=== PATIENT | female | born 1980 | race American Indian/Alaskan Native ===

== ENCOUNTER 2019-03-13 09:30 | Outpatient (CLI) | payer BC ==
[2019-03-13 11:11] LABS: Hematocrit 41.8 % (30.3-42.9); Mean Corpuscular HGB Conc 34 % (30-34); Mean Corpuscular Volume 92 fl (79-97); Red Blood Count 4.53 M/mm3 (3.65-5.03); Red Cell Distribution Width 13.9 % (13.2-15.2)
[2019-03-13 11:28] LABS: Alanine Aminotransferase 20 units/L (7-56); BUN/Creatinine Ratio 11; Blood Urea Nitrogen 10 mg/dL (7-17); Calcium 9.3 mg/dL (8.4-10.2); Chol/HDL Ratio 3.62 %; HDL Cholesterol 53 mg/dL (40-59); Hemolysis Index 10; LDL Cholesterol,Direct 132 mg/dL (50-130)
[2019-03-13 11:52] LABS: Platelet Count 185 K/mm3 (140-440)
[2019-03-16 12:56] LABS: Vitamin D, 25-OH, D2 <4 ng/mL
== END 2019-03-13 09:31 | disposition home or self-care (01) ==
LOC: LAB 09:30
PROVIDERS: ATTEND Internal Medicine
DX: Z00.01 Encounter for general adult medical examination with abnormal findings (principal); Z13.220 Encounter for screening for lipoid disorders; Z13.21 Encounter for screening for nutritional disorder; I10 Essential (primary) hypertension
CPT/HCPCS: 36415; 80053; 80061; 82306; 82607; 83036; 84443; 85027

== ENCOUNTER 2019-05-05 02:51 | Emergency (ER) | payer BC ==
--- NOTE | 2019-05-05 04:01 | Emergency Department Report ---
ED ENT HPI - General Chief complaint: Dental/Oral Stated complaint: TOOTHACHE Time Seen by Provider: 05/05/19 03:51 Source: patient Mode of arrival: Ambulatory Limitations: No Limitations - History of Present Illness Initial comments: Patient is a 38-year-old female who presents to the emergency room with complaints of left lower dental pain that began a month ago. She states she cracked her tooth a month ago on the left lower side. States that she saw a dentist twice and was told that it was infected. States she completed a course of amoxicillin. the patient states she is currently on clindamycin. pt states the dentist referred her to go see an oral surgeon due to the cracked tooth being a wisdom tooth. She denies any facial swelling, fever, nausea, vomiting. Past medical history of high blood pressure and takes her blood pressure medication in the morning. Last took her blood pressure medication yesterday morning. Denies any allergies to medications. LNMP: 04/14/19 - Related Data Previous Rx's Medication Instructions Recorded Last Taken Type HYDROcodone/APAP 5-325 [[place] 1 each PO Q6HR PRN #10 tablet 07/15/14 Unknown Rx 5/325] Promethazine [Phenergan] 25 mg PO Q6H PRN #10 tablet 07/15/14 Unknown Rx Acetaminophen/Codeine [Tylenol 1 tab PO Q6H PRN #10 tab 05/05/19 Unknown Rx /Codeine # 3 tab] Ibuprofen [Motrin 800 MG tab] 800 mg PO TID PRN #20 tablet 05/05/19 Unknown Rx Allergies Allergy/AdvReac Type Severity Reaction Status Date / Time No Known Allergies Allergy Unverified 07/15/14 12:14 ED Dental HPI - General Chief complaint: Dental/Oral Stated complaint: TOOTHACHE Time Seen by Provider: 05/05/19 03:51 Source: patient Mode of arrival: Ambulatory Limitations: No Limitations - Related Data Previous Rx's Medication Instructions Recorded Last Taken Type HYDROcodone/APAP 5-325 [[place] 1 each PO Q6HR PRN #10 tablet 07/15/14 Unknown Rx 5/325] Promethazine [Phenergan] 25 mg PO Q6H PRN #10 tablet 07/15/14 Unknown Rx Acetaminophen/Codeine [Tylenol 1 tab PO Q6H PRN #10 tab 05/05/19 Unknown Rx /Codeine # 3 tab] Ibuprofen [Motrin 800 MG tab] 800 mg PO TID PRN #20 tablet 05/05/19 Unknown Rx Allergies Allergy/AdvReac Type Severity Reaction Status Date / Time No Known Allergies Allergy Unverified 07/15/14 12:14 ED Review of Systems ROS: Stated complaint: TOOTHACHE Other details as noted in HPI Comment: All other systems reviewed and negative ED Past Medical Hx - Past Medical History Previous Medical History?: Yes Hx Hypertension: Yes - Surgical History Past Surgical History?: Yes Additional Surgical History: tubal ligation - Social History Smoking Status: Current Every Day Smoker Substance Use Type: None - Medications Home Medications: Home Medications Medication Instructions Recorded Confirmed Last Taken Type HYDROcodone/APAP 5-325 [[place] 1 each PO Q6HR PRN #10 tablet 07/15/14 Unknown Rx 5/325] Promethazine [Phenergan] 25 mg PO Q6H PRN #10 tablet 07/15/14 Unknown Rx Acetaminophen/Codeine [Tylenol 1 tab PO Q6H PRN #10 tab 05/05/19 Unknown Rx /Codeine # 3 tab] Ibuprofen [Motrin 800 MG tab] 800 mg PO TID PRN #20 tablet 05/05/19 Unknown Rx ED Physical Exam - General Limitations: No Limitations General appearance: alert, in no apparent distress - Head Head exam: Present: atraumatic, normocephalic - Eye Eye exam: Present: normal appearance, PERRL - ENT ENT exam: Present: normal orophraynx, mucous membranes moist, other (left lower wisdom tooth is partially cracked, no surrounding induration or edema, no facial edema, uvula is midline, no uvular edema) ED Course Vital Signs 05/05/19 05/05/19 02:54 04:37 Temperature 98.1 F 98.1 F Pulse Rate 91 H 78 Respiratory 18 16 Rate Blood Pressure 172/117 Blood Pressure 152/106 [Right] O2 Sat by Pulse 100 100 Oximetry ED Medical Decision Making - Lab Data Vital Signs 05/05/19 05/05/19 02:54 04:37 Temperature 98.1 F 98.1 F Pulse Rate 91 H 78 Respiratory 18 16 Rate Blood Pressure 172/117 Blood Pressure 152/106 [Right] O2 Sat by Pulse 100 100 Oximetry - Medical Decision Making Patient is a 38-year-old female who presents to the emergency room with complaints of left lower dental pain that began a month ago. She states she cracked her tooth a month ago on the left lower side. States that she saw a dentist twice and was told that it was infected. States she completed a course of amoxicillin. the patient states she is currently on clindamycin. pt states the dentist referred her to go see an oral surgeon due to the cracked tooth being a wisdom tooth. She denies any facial swelling, fever, nausea, vomiting. Past medical history of high blood pressure and takes her blood pressure medication in the morning. Last took her blood pressure medication yesterday morning. Denies any allergies to medications. LNMP: 04/14/19. on exam: left lower wisdom tooth is partially cracked, no surrounding induration or edema, no facial edema, uvula is midline, no uvular edema. no dental abscess present on exam. pt given prescription for pain medication and anti-inflammatory. advised to please take medication as prescribed as needed. do not drive or operate heavy machinery while taking pain medication. please follow-up with your oral surgeon. It is very important that you follow up with the oral surgeon. Return to the emergency room for any new or worsening symptoms. please follow up with a primary care doctor in the next 2-3 days and discuss the elevation in your blood pressure during todays visit. keep a blood pressure log and eat a low sodium diet. Critical care attestation.: If time is entered above; I have spent that time in minutes in the direct care of this critically ill patient, excluding procedure time. ED Disposition Clinical Impression: Cracked tooth, Dental caries, Elevated blood pressure reading Disposition: TO HOME OR SELFCARE Is pt being admited?: No Does the pt Need Aspirin: No Condition: Stable Instructions: Dental Caries (ED) Additional Instructions: Please take medication as prescribed as needed. do not drive or operate heavy machinery while taking pain medication. please follow-up with your oral surgeon. It is very important that you follow up with the oral surgeon. Return to the emergency room for any new or worsening symptoms. please follow up with a primary care doctor in the next 2-3 days and discuss the elevation in your blood pressure during todays visit. keep a blood pressure log and eat a low sodium diet. Prescriptions: Ibuprofen [Motrin 800 MG tab] 800 mg PO TID PRN #20 tablet PRN Reason: Pain, Moderate (4-6) Acetaminophen/Codeine [Tylenol /Codeine # 3 tab] 1 tab PO Q6H PRN #10 tab PRN Reason: Pain , Severe (7-10) Referrals: your, oral surgeon [Other] - 2-3 Days LETY SANDHU MD [Primary Care Provider] - 2-3 Days Forms: Work/School Release Form(ED) Time of Disposition: 04:01 Print Language: CYMRAES
[2019-05-05 04:41] VITALS: BP 152/106
== END 2019-05-05 04:37 | disposition home or self-care (01) ==
LOC: ED 02:51
DX: K03.81 Cracked tooth (principal); K02.9 Dental caries, unspecified; I10 Essential (primary) hypertension; F17.200 Nicotine dependence, unspecified, uncomplicated; Z98.890 Other specified postprocedural states; Z98.51 Tubal ligation status; Z79.899 Other long term (current) drug therapy
CPT/HCPCS: 99282

== ENCOUNTER 2019-11-17 15:10 | Emergency (ER) | payer BC ==
--- NOTE | 2019-11-17 17:43 | XRay Report ---
CHEST 1 VIEW INDICATION: MAIN: SOB; CP; Chest pain. States has not taken her "water pills" in a few days, ran out. . COMPARISON: None. FINDINGS: Support devices: None. Heart: Normal. Lungs/Pleura: No acute pulmonary or pleural findings. There are mild atelectatic changes in the bases . IMPRESSION: 1. No acute findings. Signer Name: Jatin Mccurdy MD Signed: 11/17/2019 5:39 PM Workstation Name: [id number]
[2019-11-17 18:10] VITALS: BP 117/79
[2019-11-17 18:43] LABS: Basophils # (Auto) 0.1 K/mm3 (0.0-0.1); Basophils % (Auto) 0.7 % (0.0-1.8); Eosinophils # (Auto) 0.1 K/mm3 (0.0-0.4); Eosinophils % (Auto) 1.2 % (0.0-4.3); Hematocrit 36.5 % (30.3-42.9); Hemoglobin 12.1 gm/dl (10.1-14.3); Lymphocytes # (Auto) 2.1 K/mm3 (1.2-5.4); Lymphocytes % (Auto) 26.8 % (13.4-35.0); Mean Corpuscular HGB Conc 33 % (30-34); Mean Corpuscular Volume 91 fl (79-97); Monocytes # (Auto) 0.5 K/mm3 (0.0-0.8); Monocytes % (Auto) 6.4 % (0.0-7.3); Platelet Count 265 K/mm3 (140-440); Red Blood Count 4.03 M/mm3 (3.65-5.03); Red Cell Distribution Width 13.7 % (13.2-15.2)
[2019-11-17 18:53] LABS: INR 1.12 (0.87-1.13)
[2019-11-17 19:24] LABS: Albumin 3.4 g/dL (3.9-5); BUN/Creatinine Ratio 8; Blood Urea Nitrogen 7 mg/dL (7-17); Calcium 9.3 mg/dL (8.4-10.2); Hemolysis Index 582
[2019-11-17 19:33] LABS: Alanine Aminotransferase 36 units/L (7-56)
[2019-11-17] MEDS ORDERED: hydroCHLOROthiazide 25 MG TAB PO ONE (21:49)
--- NOTE | 2019-11-17 21:53 | Emergency Department Report ---
ED General Adult HPI - General Chief complaint: Chest Pain Stated complaint: CHEST PAIN Time Seen by Provider: 11/17/19 16:53 Source: patient, EMS Mode of arrival: Stretcher Limitations: No Limitations - History of Present Illness Initial comments: Patient presents to the emergency department with a chief complaint of increased swelling of her lower extremities and mild shortness of breath. Patient states she takes a water pill daily has been out for the last week. Patient states she will then see her doctor until the end of the week. Patient states that she takes hydrochlorothiazide 12.5 mg for her swelling. Patient denies any chest pain, abdominal pain, or headache. -: Gradual Severity scale (0 -10): 0 Consistency: constant Improves with: none Worsens with: none Associated Symptoms: denies other symptoms Treatments Prior to Arrival: none - Related Data Previous Rx's Medication Instructions Recorded Last Taken Type HYDROcodone/APAP 5-325 [[place] 1 each PO Q6HR PRN #10 tablet 07/15/14 Unknown Rx 5/325] Promethazine [Phenergan] 25 mg PO Q6H PRN #10 tablet 07/15/14 Unknown Rx Acetaminophen/Codeine [Tylenol 1 tab PO Q6H PRN #10 tab 05/05/19 Unknown Rx /Codeine # 3 tab] Ibuprofen [Motrin 800 MG tab] 800 mg PO TID PRN #20 tablet 05/05/19 Unknown Rx Naproxen 500 mg PO Q12H PRN #24 tablet 10/17/19 Unknown Rx Prednisone [predniSONE 10 mg 10 mg PO .TAPER #21 tab.ds.pk 10/17/19 Unknown Rx (6-Day Pack, 21 Tabs)] cephALEXin [Keflex] 500 mg PO Q8HR #30 cap 10/17/19 Unknown Rx methOCARBAMOL [Robaxin TAB] 750 mg PO Q8H PRN #24 tablet 10/17/19 Unknown Rx traMADoL [Ultram] 50 mg PO Q6HR PRN #12 tablet 10/17/19 Unknown Rx hydroCHLOROthiazide [Hctz] 12.5 mg PO QDAY #30 capsule 11/17/19 Unknown Rx Allergies Allergy/AdvReac Type Severity Reaction Status Date / Time No Known Allergies Allergy Unverified 07/15/14 12:14 ED Review of Systems ROS: Stated complaint: CHEST PAIN Other details as noted in HPI Constitutional: denies: chills, fever Eyes: denies: eye pain, eye discharge, vision change ENT: denies: ear pain, throat pain Respiratory: denies: cough, shortness of breath, wheezing Cardiovascular: denies: chest pain, palpitations Endocrine: no symptoms reported Gastrointestinal: denies: abdominal pain, nausea, diarrhea Genitourinary: denies: urgency, dysuria, discharge Musculoskeletal: denies: back pain, joint swelling, arthralgia Skin: denies: rash, lesions Neurological: denies: headache, weakness, paresthesias Psychiatric: denies: anxiety, depression Hematological/Lymphatic: denies: easy bleeding, easy bruising ED Past Medical Hx - Past Medical History Hx Hypertension: Yes - Surgical History Additional Surgical History: tubal ligation - Social History Smoking Status: Former Smoker Substance Use Type: Alcohol - Medications Home Medications: Home Medications Medication Instructions Recorded Confirmed Last Taken Type HYDROcodone/APAP 5-325 [[place] 1 each PO Q6HR PRN #10 tablet 07/15/14 Unknown Rx 5/325] Promethazine [Phenergan] 25 mg PO Q6H PRN #10 tablet 07/15/14 Unknown Rx Acetaminophen/Codeine [Tylenol 1 tab PO Q6H PRN #10 tab 05/05/19 Unknown Rx /Codeine # 3 tab] Ibuprofen [Motrin 800 MG tab] 800 mg PO TID PRN #20 tablet 05/05/19 Unknown Rx Naproxen 500 mg PO Q12H PRN #24 tablet 10/17/19 Unknown Rx Prednisone [predniSONE 10 mg 10 mg PO .TAPER #21 tab.ds.pk 10/17/19 Unknown Rx (6-Day Pack, 21 Tabs)] cephALEXin [Keflex] 500 mg PO Q8HR #30 cap 10/17/19 Unknown Rx methOCARBAMOL [Robaxin TAB] 750 mg PO Q8H PRN #24 tablet 10/17/19 Unknown Rx traMADoL [Ultram] 50 mg PO Q6HR PRN #12 tablet 10/17/19 Unknown Rx hydroCHLOROthiazide [Hctz] 12.5 mg PO QDAY #30 capsule 11/17/19 Unknown Rx ED Physical Exam - General Limitations: No Limitations General appearance: alert, in no apparent distress - Head Head exam: Present: atraumatic, normocephalic - Eye Eye exam: Present: normal appearance, PERRL, EOMI - ENT ENT exam: Present: mucous membranes moist - Neck Neck exam: Present: normal inspection - Respiratory Respiratory exam: Present: normal lung sounds bilaterally. Absent: respiratory distress - Cardiovascular Cardiovascular Exam: Present: regular rate, normal rhythm. Absent: systolic murmur, diastolic murmur, rubs, gallop - GI/Abdominal GI/Abdominal exam: Present: soft, normal bowel sounds. Absent: distended, tenderness - Extremities Exam Extremities exam: Present: other (mild pitting edema) - Back Exam Back exam: Present: normal inspection - Neurological Exam Neurological exam: Present: alert, oriented X3, CN II-XII intact. Absent: motor sensory deficit - Psychiatric Psychiatric exam: Present: normal affect, normal mood - Skin Skin exam: Present: warm, dry, intact, normal color. Absent: rash ED Course Vital Signs 11/17/19 11/17/19 16:16 18:09 Temperature 98.0 F Pulse Rate 57 L 55 L Respiratory 21 Rate Blood Pressure 132/72 Blood Pressure 117/79 [Left] O2 Sat by Pulse 100 Oximetry ED Medical Decision Making - Lab Data Result diagrams: 11/17/19 18:35 11/17/19 20:00 Lab Results 11/17/19 11/17/19 11/17/19 Range/Units 18:35 18:35 18:35 WBC 7.9 (4.5-11.0) K/mm3 RBC 4.03 (3.65-5.03) M/mm3 Hgb 12.1 (10.1-14.3) gm/dl Hct 36.5 (30.3-42.9) % MCV 91 (79-97) fl MCH 30 (28-32) pg MCHC 33 (30-34) % RDW 13.7 (13.2-15.2) % Plt Count 265 (140-440) K/mm3 Lymph % (Auto) 26.8 (13.4-35.0) % [place] % (Auto) 6.4 (0.0-7.3) % Eos % (Auto) 1.2 (0.0-4.3) % Baso % (Auto) 0.7 (0.0-1.8) % Lymph # 2.1 (1.2-5.4) K/mm3 [place] # 0.5 (0.0-0.8) K/mm3 Eos # 0.1 (0.0-0.4) K/mm3 Baso # 0.1 (0.0-0.1) K/mm3 Seg Neutrophils % 64.9 (40.0-70.0) % Seg Neutrophils # 5.1 (1.8-7.7) K/mm3 PT 14.6 (12.2-14.9) Sec. INR 1.12 (0.87-1.13) APTT 29.0 (24.2-36.6) Sec. Sodium (137-145) mmol/L Potassium Chloride (98-107) mmol/L Carbon Dioxide (22-30) mmol/L Anion Gap mmol/L BUN (7-17) mg/dL Creatinine (0.7-1.2) mg/dL Estimated GFR ml/min BUN/Creatinine Ratio % Glucose (65-100) mg/dL Calcium (8.4-10.2) mg/dL Total Bilirubin (0.1-1.2) mg/dL AST (5-40) units/L ALT (7-56) units/L Alkaline Phosphatase (35-129) units/L Troponin T < 0.010 (0.00-0.029) ng/mL NT-Pro-B Natriuret Pep (0-450) pg/mL Total Protein (6.3-8.2) g/dL Albumin (3.9-5) g/dL Albumin/Globulin Ratio % 11/17/19 11/17/19 11/17/19 Range/Units 18:35 20:00 20:00 WBC (4.5-11.0) K/mm3 RBC (3.65-5.03) M/mm3 Hgb (10.1-14.3) gm/dl Hct (30.3-42.9) % MCV (79-97) fl MCH (28-32) pg MCHC (30-34) % RDW (13.2-15.2) % Plt Count (140-440) K/mm3 Lymph % (Auto) (13.4-35.0) % [place] % (Auto) (0.0-7.3) % Eos % (Auto) (0.0-4.3) % Baso % (Auto) (0.0-1.8) % Lymph # (1.2-5.4) K/mm3 [place] # (0.0-0.8) K/mm3 Eos # (0.0-0.4) K/mm3 Baso # (0.0-0.1) K/mm3 Seg Neutrophils % (40.0-70.0) % Seg Neutrophils # (1.8-7.7) K/mm3 PT (12.2-14.9) Sec. INR (0.87-1.13) APTT (24.2-36.6) Sec. Sodium 138 (137-145) mmol/L Potassium TNR 4.1 Chloride 104.7 (98-107) mmol/L Carbon Dioxide 18 L (22-30) mmol/L Anion Gap 22 mmol/L BUN 7 (7-17) mg/dL Creatinine 0.9 (0.7-1.2) mg/dL Estimated GFR > 60 ml/min BUN/Creatinine Ratio 8 % Glucose 88 (65-100) mg/dL Calcium 9.3 (8.4-10.2) mg/dL Total Bilirubin 0.20 (0.1-1.2) mg/dL AST 10 (5-40) units/L ALT 36 (7-56) units/L Alkaline Phosphatase 72 (35-129) units/L Troponin T < 0.010 (0.00-0.029) ng/mL NT-Pro-B Natriuret Pep 255.1 (0-450) pg/mL Total Protein 7.5 (6.3-8.2) g/dL Albumin 3.4 L (3.9-5) g/dL Albumin/Globulin Ratio 0.8 % - EKG Data -: EKG Interpreted by De EKG shows normal: sinus rhythm Rate: bradycardia - Radiology Data Radiology results: report reviewed - Medical Decision Making Discussed results with patient Critical care attestation.: If time is entered above; I have spent that time in minutes in the direct care of this critically ill patient, excluding procedure time. ED Disposition Clinical Impression: Peripheral edema Disposition: DC-01 TO HOME OR SELFCARE Is pt being admited?: No Does the pt Need Aspirin: No Condition: Stable Instructions: Leg Edema (ED) Additional Instructions: return if worse Referrals: PRIMARY CARE,MD [Primary Care Provider] - 3-5 Days [facility] [Provider Group] - 3-5 Days [facility] [Provider Group] - 3-5 Days Time of Disposition: 21:52
== END 2019-11-17 22:32 | disposition home or self-care (01) ==
LOC: ED 15:10
DX: R60.0 Localized edema (principal); I10 Essential (primary) hypertension; Z98.51 Tubal ligation status; Z87.891 Personal history of nicotine dependence; Z79.899 Other long term (current) drug therapy
CPT/HCPCS: 36415; 71045; 80053; 83880; 84132; 84484; 85025; 85610; 85730; 93005; 93010

== ENCOUNTER 2022-03-24 10:28 | Emergency (ER) | payer BC ==
[2022-03-24] MEDS ORDERED: ASPIRIN 81 MG TAB CHEW PO ONE (14:14)
[2022-03-24] MEDS ORDERED: NITROGLYCERIN 0.4 MG TAB SUBL SL ONE (14:14)
--- NOTE | 2022-03-24 14:37 | Emergency Department Report ---
ED General Adult HPI - General Chief complaint: Chest Pain Stated complaint: CHEST PAIN Time Seen by Provider: 03/24/22 14:13 Source: patient, EMS Mode of arrival: Stretcher Limitations: No Limitations - History of Present Illness Initial comments: Patient presents to the emergency department the chief complaint of chest pain. Patient states the chest pain started 8 AM this morning. Pain is located in the middle of her chest. Pain is characterized as tightness in nature. Patient does endorse some mild shortness of breath but denies abdominal pain or headache. There is no radiation of chest pain. -: Sudden Location: chest Radiation: non-radiation Severity scale (0 -10): 7 Quality: other (Tightness) Consistency: constant Improves with: none Worsens with: none Associated Symptoms: denies other symptoms Treatments Prior to Arrival: none - Related Data Previous Rx's Medication Instructions Recorded Last Taken Type HYDROcodone/APAP 5-325 [[place] 1 each PO Q6HR PRN #10 tablet 07/15/14 Unknown Rx 5/325] Promethazine [Phenergan] 25 mg PO Q6H PRN #10 tablet 07/15/14 Unknown Rx Acetaminophen/Codeine [Tylenol 1 tab PO Q6H PRN #10 tab 05/05/19 Unknown Rx /Codeine # 3 tab] Ibuprofen [Motrin 800 MG tab] 800 mg PO TID PRN #20 tablet 05/05/19 Unknown Rx Naproxen 500 mg PO Q12H PRN #24 tablet 10/17/19 Unknown Rx Prednisone [predniSONE 10 mg 10 mg PO .TAPER #21 tab.ds.pk 10/17/19 Unknown Rx (6-Day Pack, 21 Tabs)] cephALEXin [Keflex] 500 mg PO Q8HR #30 cap 10/17/19 Unknown Rx methOCARBAMOL [Robaxin TAB] 750 mg PO Q8H PRN #24 tablet 10/17/19 Unknown Rx traMADoL [Ultram] 50 mg PO Q6HR PRN #12 tablet 10/17/19 Unknown Rx hydroCHLOROthiazide [Hctz] 12.5 mg PO QDAY #30 capsule 11/17/19 Unknown Rx Butalb/Acetaminophen/Caffeine 1 cap PO Q8HR PRN #20 cap 04/07/20 Unknown Rx [Fioricet 50-300-40 mg CAP] Ibuprofen [Motrin] 800 mg PO Q8HR PRN #30 tablet 03/24/22 Unknown Rx Allergies Allergy/AdvReac Type Severity Reaction Status Date / Time No Known Allergies Allergy Verified 04/06/20 20:52 ED Review of Systems ROS: Stated complaint: CHEST PAIN Other details as noted in HPI Comment: All other systems reviewed and negative Constitutional: denies: chills, fever Eyes: denies: eye pain, eye discharge, vision change ENT: denies: ear pain, throat pain Respiratory: denies: cough, shortness of breath, wheezing Cardiovascular: chest pain. denies: palpitations Endocrine: no symptoms reported Gastrointestinal: denies: abdominal pain, nausea, diarrhea Genitourinary: denies: urgency, dysuria, discharge Musculoskeletal: denies: back pain, joint swelling, arthralgia Skin: denies: rash, lesions Neurological: denies: headache, weakness, paresthesias Psychiatric: denies: anxiety, depression Hematological/Lymphatic: denies: easy bleeding, easy bruising ED Past Medical Hx - Past Medical History Hx Hypertension: Yes - Surgical History Additional Surgical History: tubal ligation - Social History Smoking Status: Never Smoker Substance Use Type: None - Medications Home Medications: Home Medications Medication Instructions Recorded Confirmed Last Taken Type HYDROcodone/APAP 5-325 [[place] 1 each PO Q6HR PRN #10 tablet 07/15/14 Unknown Rx 5/325] Promethazine [Phenergan] 25 mg PO Q6H PRN #10 tablet 07/15/14 Unknown Rx Acetaminophen/Codeine [Tylenol 1 tab PO Q6H PRN #10 tab 05/05/19 Unknown Rx /Codeine # 3 tab] Ibuprofen [Motrin 800 MG tab] 800 mg PO TID PRN #20 tablet 05/05/19 Unknown Rx Naproxen 500 mg PO Q12H PRN #24 tablet 10/17/19 Unknown Rx Prednisone [predniSONE 10 mg 10 mg PO .TAPER #21 tab.ds.pk 10/17/19 Unknown Rx (6-Day Pack, 21 Tabs)] cephALEXin [Keflex] 500 mg PO Q8HR #30 cap 10/17/19 Unknown Rx methOCARBAMOL [Robaxin TAB] 750 mg PO Q8H PRN #24 tablet 10/17/19 Unknown Rx traMADoL [Ultram] 50 mg PO Q6HR PRN #12 tablet 10/17/19 Unknown Rx hydroCHLOROthiazide [Hctz] 12.5 mg PO QDAY #30 capsule 11/17/19 Unknown Rx [place]alb/Acetaminophen/Caffeine 1 cap PO Q8HR PRN #20 cap 04/07/20 Unknown Rx [Fioricet 50-300-40 mg CAP] Ibuprofen [Motrin] 800 mg PO Q8HR PRN #30 tablet 03/24/22 Unknown Rx ED Physical Exam - General Limitations: No Limitations General appearance: alert, in no apparent distress - Head Head exam: Present: atraumatic, normocephalic - Eye Eye exam: Present: normal appearance, PERRL. Absent: conjunctival injection - ENT ENT exam: Present: mucous membranes moist - Neck Neck exam: Present: normal inspection - Respiratory Respiratory exam: Present: normal lung sounds bilaterally. Absent: respiratory distress, wheezes - Cardiovascular Cardiovascular Exam: Present: regular rate, normal rhythm. Absent: systolic murmur, diastolic murmur, rubs, gallop - GI/Abdominal GI/Abdominal exam: Present: soft, normal bowel sounds. Absent: distended, tenderness - Extremities Exam Extremities exam: Present: normal inspection - Back Exam Back exam: Present: normal inspection - Neurological Exam Neurological exam: Present: alert, oriented X3, CN II-XII intact. Absent: motor sensory deficit - Psychiatric Psychiatric exam: Present: normal affect, normal mood - Skin Skin exam: Present: warm, dry, intact, normal color. Absent: rash ED Course Vital Signs 03/24/22 10:46 Temperature 98.1 F Pulse Rate 81 Respiratory 18 Rate Blood Pressure 140/96 [Left] O2 Sat by Pulse 99 Oximetry ED Medical Decision Making - Lab Data Result diagrams: 03/24/22 14:40 03/24/22 14:40 Lab Results 03/24/22 03/24/22 03/24/22 Range/Units 14:40 14:40 14:40 WBC 6.5 (4.5-11.0) K/mm3 RBC 4.86 (3.65-5.03) M/mm3 Hgb 14.0 (10.1-14.3) gm/dl Hct 42.9 (30.3-42.9) % MCV 88 (79-97) fl MCH 29 (28-32) pg MCHC 33 (30-34) % RDW 15.4 H (13.2-15.2) % Plt Count 227 (140-440) K/mm3 Lymph % (Auto) 17.8 (13.4-35.0) % [place] % (Auto) 5.0 (0.0-7.3) % Eos % (Auto) 1.0 (0.0-4.3) % Baso % (Auto) Medical Registrar Lymph # (Auto) 1.2 (1.2-5.4) K/mm3 [place] # (Auto) 0.3 (0.0-0.8) K/mm3 Eos # (Auto) 0.1 (0.0-0.4) K/mm3 Baso # (Auto) 0.0 (0.0-0.1) K/mm3 Seg Neutrophils % 75.7 H (40.0-70.0) % Seg Neutrophils # 5.0 (1.8-7.7) K/mm3 PT 13.9 (12.2-14.9) Sec. INR 0.97 (0.87-1.13) APTT 25.4 (24.2-36.6) Sec. D-Dimer 233.76 (0-234) ng/mlDDU Sodium 140 (137-145) mmol/L Potassium 4.1 (3.6-5.0) mmol/L Chloride 101.4 (98-107) mmol/L Carbon Dioxide 23 (22-30) mmol/L Anion Gap 20 mmol/L BUN 11 (7-17) mg/dL Creatinine 0.9 (0.6-1.2) mg/dL Estimated GFR > 60 ml/min BUN/Creatinine Ratio 12 % Glucose 104 H (65-100) mg/dL Calcium 9.8 (8.4-10.2) mg/dL Total Bilirubin 0.20 (0.1-1.2) mg/dL AST 21 (5-40) units/L ALT 20 (7-56) units/L Alkaline Phosphatase 117 (35-129) units/L Troponin T < 0.010 (0.00-0.029) ng/mL Total Protein 7.3 (6.3-8.2) g/dL Albumin 4.1 (3.9-5) g/dL Albumin/Globulin Ratio 1.3 % Lipase 11 L (13-60) units/L 03/24/22 Range/Units 16:55 WBC (4.5-11.0) K/mm3 RBC (3.65-5.03) M/mm3 Hgb (10.1-14.3) gm/dl Hct (30.3-42.9) % MCV (79-97) fl MCH (28-32) pg MCHC (30-34) % RDW (13.2-15.2) % Plt Count (140-440) K/mm3 Lymph % (Auto) (13.4-35.0) % [place] % (Auto) (0.0-7.3) % Eos % (Auto) (0.0-4.3) % Baso % (Auto) Lymph # (Auto) (1.2-5.4) K/mm3 [place] # (Auto) (0.0-0.8) K/mm3 Eos # (Auto) (0.0-0.4) K/mm3 Baso # (Auto) (0.0-0.1) K/mm3 Seg Neutrophils % (40.0-70.0) % Seg Neutrophils # (1.8-7.7) K/mm3 PT (12.2-14.9) Sec. INR (0.87-1.13) APTT (24.2-36.6) Sec. D-Dimer (0-234) ng/mlDDU Sodium (137-145) mmol/L Potassium (3.6-5.0) mmol/L Chloride (98-107) mmol/L Carbon Dioxide (22-30) mmol/L Anion Gap mmol/L BUN (7-17) mg/dL Creatinine (0.6-1.2) mg/dL Estimated GFR ml/min BUN/Creatinine Ratio % Glucose (65-100) mg/dL Calcium (8.4-10.2) mg/dL Total Bilirubin (0.1-1.2) mg/dL AST (5-40) units/L ALT (7-56) units/L Alkaline Phosphatase (35-129) units/L Troponin T < 0.010 (0.00-0.029) ng/mL Total Protein (6.3-8.2) g/dL Albumin (3.9-5) g/dL Albumin/Globulin Ratio % Lipase (13-60) units/L - EKG Data -: EKG Interpreted by Ar EKG shows normal: sinus rhythm Rate: normal - Radiology Data Radiology results: report reviewed - Medical Decision Making Discussed results with patient Critical care attestation.: If time is entered above; I have spent that time in minutes in the direct care of this critically ill patient, excluding procedure time. ED Disposition Clinical Impression: Nonspecific chest pain Disposition: 01 HOME / SELF CARE / HOMELESS Is pt being admited?: No Does the pt Need Aspirin: No Condition: Stable Instructions: Nonspecific Chest Pain, Adult Additional Instructions: Return if worse Referrals: ARELY ROBERT PA [Primary Care Provider] - 3-5 Days LETY SANDHU MD [Staff Physician] - 3-5 Days Time of Disposition: 18:13
--- NOTE | 2022-03-24 15:12 | XRay Report ---
CHEST 1 VIEW 03/24/2022 2:04 PM INDICATION / CLINICAL INFORMATION: Chest Pain. COMPARISON: 11/17/19. FINDINGS: SUPPORT DEVICES: None. HEART / MEDIASTINUM: The heart size and pulmonary vasculature are normal. The aorta is normal in [place]. LUNGS / PLEURA: No significant pulmonary or pleural abnormality. No pneumothorax. ADDITIONAL FINDINGS: No significant additional findings. IMPRESSION: No acute abnormality or significant change. Signer Name: Ez Moreno MD Signed: 03/24/2022 3:07 PM Workstation Name: [id number]
[2022-03-24 15:56] LABS: INR 0.97 (0.87-1.13)
[2022-03-24 15:57] LABS: Partial Thromboplastin Time 25.4 Sec. (24.2-36.6)
[2022-03-24 16:01] LABS: Eosinophils # (Auto) 0.1 K/mm3 (0.0-0.4); Hematocrit 42.9 % (30.3-42.9); Lymphocytes # (Auto) 1.2 K/mm3 (1.2-5.4); Lymphocytes % (Auto) 17.8 % (13.4-35.0); Mean Corpuscular HGB Conc 33 % (30-34); Mean Corpuscular Volume 88 fl (79-97); Monocytes # (Auto) 0.3 K/mm3 (0.0-0.8); Platelet Count 227 K/mm3 (140-440); Red Blood Count 4.86 M/mm3 (3.65-5.03); Red Cell Distribution Width 15.4 % (13.2-15.2)
[2022-03-24 16:09] LABS: Alanine Aminotransferase 20 units/L (7-56); Albumin 4.1 g/dL (3.9-5); BUN/Creatinine Ratio 12; Blood Urea Nitrogen 11 mg/dL (7-17); Calcium 9.8 mg/dL (8.4-10.2); Hemolysis Index 3
[2022-03-24] MEDS ORDERED: traMADol 50 MG TAB PO ONE (18:02)
[2022-03-24 19:07] VITALS: BP 121/64
--- NOTE | 2022-03-26 21:24 | Electrocardiograph Report ---
[facility] Test Date: 2022-03-24 Test Time: 12:26:23 Pat Name: MARIAN MORALES Department: Room: Gender: F S[employer] Helper: GEORGIE : 1980 Requested By: SHANTEL ACKERMAN Order Number: [id number] Reading MD: Nixon Mott Measurements Intervals [place] Rate: 69 P: 15 W[place]: 169 QRS: 48 QRSD: 88 T: 24 QT: 415 QTc: 445 Interpretive Statements Sinus rhythm Nonspecific T wave abnormality No previous ECG available for comparison Electronically Signed On 03-26-2022 21:24:39 EDT by Nixon Mott
== END 2022-03-24 19:06 | disposition home or self-care (01) ==
LOC: ED 10:28
DX: R07.9 Chest pain, unspecified (principal)
CPT/HCPCS: 36415; 71045; 80053; 83690; 84484; 85025; 85379; 85610; 85730; 93005; 99284